=== PATIENT | female | born 1985 | race Caucasian/White ===

== ENCOUNTER 2019-05-06 01:33 | Emergency (ER) | payer BC ==
[~2019-05-06] VITALS: Ht 170.2 cm; Wt 125.0 kg
[~2019-05-06 01:33] MED LIST: ALBU17IN2 INH; ARANELLE PO; IBUP400T OR
[2019-05-06] MEDS ORDERED: TUMS500C PO (01:40)
[2019-05-06] MEDS ORDERED: NS 1,000 ML IV ONE (02:15)
[2019-05-06] MEDS ORDERED: ONDANSETRON 4MG/2ML VIAL (J2405) IV ONE (02:15)
[2019-05-06] MEDS: MORPHINE 4 MG/ML 1ML VIAL/SYRINGE (J2270) IV PRN ×2 (02:31→04:09)
[2019-05-06 02:42] LABS: BASO # 0.1 10^3/uL (0.0-0.2); BASO % 0.5 % (0.0-1.0); EOS # 0.2 10^3/uL (0.0-0.5); EOS % 1.3 % (0.0-3.0); HEMATOCRIT 38.7 % (36.0-47.0); HEMOGLOBIN 12.9 g/dl (12.0-15.5); LYMPH % 21.1 % (24.0-44.0); MEAN CORPUSCULAR HEMOGLOBIN 27.6 pg (27.0-33.0); MEAN CORPUSCULAR HGB CONC 33.3 g/dl (32.0-36.5); MEAN CORPUSCULAR VOLUME 82.7 fl (80.0-96.0); MONO # 0.8 10^3/uL (0.0-0.8); MONO % 5.9 % (0.0-5.0); NEUTROPHILS % 70.8 % (36.0-66.0); PLATELET COUNT, AUTOMATED 400 10^3/uL (150-450); RED BLOOD COUNT 4.68 10^6/uL (4.00-5.40); WHITE BLOOD COUNT 14.2 10^3/uL (4.0-10.0)
[2019-05-06 02:57] LABS: ALBUMIN 3.3 GM/DL (3.2-5.2); ALT/SGPT 16 U/L (12-78); BILIRUBIN,DIRECT < 0.1 MG/DL (0.0-0.2); BILIRUBIN,TOTAL 0.3 MG/DL (0.2-1.0); LIPASE 67 U/L (73-393); TOTAL PROTEIN 7.7 GM/DL (6.4-8.2)
--- NOTE | 2019-05-06 03:15 | REPVR ---
PROCEDURE INFORMATION: Exam: US Abdomen Limited, Right Upper Quadrant Exam date and time: 05/06/2019 2:44 AM Clinical history: 34 years old, female; Abdominal pain; Epigastric; Additional info: Ruq abd pain TECHNIQUE: Imaging protocol: Real-time ultrasound of the abdomen with image documentation. Examination was focused on the right upper quadrant. COMPARISON: No relevant prior studies available. FINDINGS: Liver: Hepatomegaly and steatosis. Gallbladder: Cholelithiasis. Common bile duct: Normal. No stones. No dilation. Pancreas: Visualized pancreas is unremarkable. IMPRESSION: Cholelithiasis without evidence of acute cholecystitis. Hepatomegaly and steatosis. Electronically signed by: Diego Rolon On 05/06/2019 03:15:03 AM
[2019-05-06] MEDS ORDERED: ONDA4TAB6 PO (04:24)
[2019-05-06] MEDS ORDERED: LEVS0.124 SL (04:24)
[2019-05-06] MEDS ORDERED: HYOSCYAMINE SULFATE 0.125 MG SUBL TABLET PO ONE (04:30)
[2019-05-06 04:41] VITALS: BP 153/90
[2019-05-06] MEDS ORDERED: KETO10TAB PO (14:53)
[2019-06-01] MEDS ORDERED: PROAAER10 INH (15:34)
[2019-06-01] MEDS ORDERED: [UNRECOGNIZED DRUG - CODE] PO (15:34)
[2019-06-01] MEDS ORDERED: IBUP-1114 PO (15:34)
== END 2019-05-06 04:43 | disposition home or self-care (01) ==
LOC: M ED 01:33
DX: K80.70 Calculus of gallbladder and bile duct without cholecystitis without obstruction (principal)
CPT/HCPCS: 76705; 80047; 80076; 81001; 83690; 84702; 85025; 93041; 96374; 96375; 96376; 99284; J2270; J2405

== ENCOUNTER 2019-05-06 12:28 | Emergency (ER) | payer BC ==
[~2019-05-06] VITALS: Ht 170.2 cm; Wt 125.0 kg
[~2019-05-06 12:28] MED LIST changes: +LEVS0.124 SL; +ONDA4TAB6 PO; +TUMS500C PO
[2019-05-06 13:44] LABS: BASO # 0.1 10^3/uL (0.0-0.2); BASO % 0.4 % (0.0-1.0); EOS # 0.1 10^3/uL (0.0-0.5); EOS % 0.8 % (0.0-3.0); HEMOGLOBIN 12.6 g/dl (12.0-15.5); LYMPH # 1.9 10^3/uL (1.5-5.0); LYMPH % 13.2 % (24.0-44.0); MEAN CORPUSCULAR HEMOGLOBIN 27.3 pg (27.0-33.0); MEAN CORPUSCULAR HGB CONC 33.2 g/dl (32.0-36.5); MEAN CORPUSCULAR VOLUME 82.3 fl (80.0-96.0); MONO # 0.8 10^3/uL (0.0-0.8); MONO % 5.7 % (0.0-5.0); NEUTROPHILS # 11.4 10^3/uL (1.5-8.5); NEUTROPHILS % 79.7 % (36.0-66.0); PLATELET COUNT, AUTOMATED 400 10^3/uL (150-450); RED BLOOD COUNT 4.62 10^6/uL (4.00-5.40); WHITE BLOOD COUNT 14.3 10^3/uL (4.0-10.0)
[2019-05-06] MEDS ORDERED: KETOROLAC 30 MG/ML VIAL (J1885) IV ONE (13:45)
[2019-05-06 14:01] LABS: ALBUMIN 3.3 GM/DL (3.2-5.2); ALT/SGPT 14 U/L (12-78); BILIRUBIN,DIRECT 0.1 MG/DL (0.0-0.2); BILIRUBIN,TOTAL 0.3 MG/DL (0.2-1.0); BLOOD UREA NITROGEN 5 MG/DL (7-18); CALCIUM LEVEL 9.2 MG/DL (8.5-10.1); CARBON DIOXIDE LEVEL 25 MEQ/L (21-32); CHLORIDE LEVEL 107 MEQ/L (98-107); CREATININE FOR GFR 0.74 MG/DL (0.55-1.30); GLOMERULAR FILTRATION RATE > 60.0 (>60); GLUCOSE, FASTING 108 MG/DL (70-100); LIPASE 122 U/L (73-393); POTASSIUM SERUM 4.1 MEQ/L (3.5-5.1); SODIUM LEVEL 140 MEQ/L (136-145); TOTAL PROTEIN 7.7 GM/DL (6.4-8.2)
[2019-05-06] MEDS ORDERED: ACETAMINOPHEN 325 MG TAB PO ONE (14:45)
[2019-05-06] MEDS ORDERED: KETO10TAB PO (14:53)
[2019-05-06 15:05] VITALS: BP 140/78
[2019-06-01] MEDS ORDERED: [UNRECOGNIZED DRUG - CODE] PO (15:34)
[2019-06-01] MEDS ORDERED: PROAAER10 INH (15:34)
[2019-06-01] MEDS ORDERED: IBUP-1114 PO (15:34)
== END 2019-05-06 15:23 | disposition home or self-care (01) ==
LOC: M ED 12:28
DX: K80.50 Calculus of bile duct without cholangitis or cholecystitis without obstruction (principal); J30.2 Other seasonal allergic rhinitis; Z87.19 Personal history of other diseases of the digestive system
CPT/HCPCS: 80048; 80076; 83690; 85025; 96374; 99284; J1885

== ENCOUNTER 2019-06-13 07:57 | Day surgery (SDC) | payer BC ==
[~2019-06-13] VITALS: Ht 167.6 cm; Wt 122.8 kg
[~2019-06-13 07:57] MED LIST changes: +IBUP-1114 PO; +KETO10TAB PO; +LIDOCAINE 1% MDV 20ML VIAL SQ PRN; +LR 1,000 ML IV ONE; +PROAAER10 INH; +[UNRECOGNIZED DRUG - CODE] PO
[2019-06-13] MEDS ORDERED: BUPIVACAINE HCL 0.25% 30 ML VIAL As Ordered ONE (09:03)
[2019-06-13] MEDS ORDERED: SUGAMMADEX SODIUM 500 MG/5 ML VIAL (BRIDION) As Ordered ONE (09:43)
[2019-06-13] MEDS ORDERED: LIDOCAINE 2% INJ 100 MG/5 ML SDV (FOR ANES.) As Ordered ONE (09:43)
[2019-06-13] MEDS ORDERED: dexameTHASONE 4 MG/ML 1ML VIAL (J1100) As Ordered ONE (09:43)
[2019-06-13] MEDS ORDERED: PROPOFOL 200 MG/20 ML VIAL As Ordered ONE (09:43)
[2019-06-13] MEDS ORDERED: fentaNYL 250 MCG/5 ML INJECTION (J3010) As Ordered ONE (09:43)
[2019-06-13] MEDS ORDERED: KETOROLAC 60 MG/2 ML VIAL (J1885) As Ordered ONE (09:43)
[2019-06-13] MEDS ORDERED: MIDAZOLAM INJ 2 MG/2 ML VIAL (J2250) As Ordered ONE (09:43)
[2019-06-13] MEDS ORDERED: ROCURONIUM BROMIDE 50 MG/5 ML VIAL As Ordered ONE ×2 (09:43→09:53)
[2019-06-13] MEDS ORDERED: METOCLOPRAMIDE INJ 10MG/2ML VIAL (J2765) As Ordered ONE (09:43)
[2019-06-13] MEDS ORDERED: ONDANSETRON 4MG/2ML VIAL (J2405) As Ordered ONE ×2 (09:43→13:26)
[2019-06-13] MEDS ORDERED: ACETAMINOPHEN 1000MG 100ML IV BTL (OFIRMEV) (J0131 PER 10MG) As Ordered ONE (09:46)
[2019-06-13] MEDS ORDERED: CONRAY-60 60% 50ML VIAL (Q9961) As Ordered ONE (10:26)
[2019-06-13] MEDS ORDERED: DESFLURANE 240 ML INHALANT As Ordered ONE (10:57)
[2019-06-13] MEDS ORDERED: fentaNYL 100 MCG/2 ML INJECTION (J3010) As Ordered ONE (11:54)
[2019-06-13] MEDS ORDERED: HYDROMORPHONE HCL 0.5 MG/ 0.5 ML SYRINGE (J1170 PER 1) IV PRN (13:30)
[2019-06-13] MEDS ORDERED: LR 1,000 ML IV SCH (13:30)
[2019-06-13] MEDS ORDERED: fentaNYL 100 MCG/2 ML INJECTION (J3010) IV PRN (13:30)
[2019-06-13] MEDS ORDERED: ONDANSETRON 4MG/2ML VIAL (J2405) IV PRN (13:30)
[2019-06-13] MEDS ORDERED: PERCOCET 5MG/325MG TAB PO PRN (13:30)
[2019-06-13] MEDS ORDERED: ALBUTEROL SULFATE 2.5 MG/0.5 ML INH NEB SOLN As Ordered ONE (14:10)
[2019-06-13] MEDS ORDERED: PERCOCET 5MG/325MG TAB As Ordered ONE (14:33)
[2019-06-13] MEDS ORDERED: NORCO, ANEXSIA 5/325MG TABLET (HYDROcodone/ACETAMINOPHEN) PO PRN (14:46)
[2019-06-13] MEDS ORDERED: IBUPROFEN 600 MG TAB PO PRN (14:46)
[2019-06-13] MEDS ORDERED: ACETAMINOPHEN 500 MG TAB PO PRN (14:46)
[2019-06-13 14:58] LABS: ALT/SGPT 38 U/L (12-78); BILIRUBIN,DIRECT < 0.1 MG/DL (0.0-0.2); BILIRUBIN,TOTAL 0.2 MG/DL (0.2-1.0); TOTAL PROTEIN 6.7 GM/DL (6.4-8.2)
[2019-06-13] MEDS ORDERED: ALBUTEROL SULFATE 2.5 MG/0.5 ML INH NEB SOLN INH ONE (15:00)
[2019-06-13 15:44] VITALS: BP 148/81
[2019-06-13 16:14] VITALS: BP 147/80
[2019-06-13 16:40] VITALS: BP 155/82
--- NOTE | 2019-06-13 18:36 | REP ---
Intraoperative cholangiogram: 13 views. History: Surgical procedure. 11 seconds of fluoroscopy time is reported. Findings: A sequence of 13 last image hold fluoroscopically obtained spot radiographs of the right upper quadrant of the abdomen during the cystic duct contrast injection demonstrates a filling defect in the common bile duct which may correspond to a balloon injection catheter. Contrast is seen flowing into the duodenum. Electronically Signed by Gómez Obrien MD 06/13/2019 06:57 P
[2019-06-13 18:43] VITALS: BP 156/86
[2019-06-13 19:40] VITALS: BP 161/81
[2019-06-13] MEDS ORDERED: ALBUTEROL SULFATE 2.5 MG/0.5 ML INH NEB SOLN NEB PRN (19:45)
[2019-06-13] MEDS ORDERED: ONDANSETRON 4 MG ORAL DISINTEGRATING TAB (Q0162 PER 1MG) PO PRN (19:45)
[2019-06-13] MEDS: PERCOCET 5MG/325MG TAB PO PRN (19:55)
[2019-06-13 20:40] VITALS: BP 154/84
[2019-06-14 02:00] VITALS: BP 148/87
[2019-06-14] MEDS: PERCOCET 5MG/325MG TAB PO PRN (05:45)
[2019-06-14 10:00] VITALS: BP 139/79
[2019-06-14 14:00] VITALS: BP 126/78
[2019-06-14] MEDS ORDERED: PERCOCET PO (14:26)
--- NOTE | 2019-06-15 08:25 | RO ---
DATE OF PROCEDURE: 06/13/2019 PREOPERATIVE DIAGNOSIS: Symptomatic gallstones. POSTOPERATIVE DIAGNOSIS: Acute and chronic cholecystitis from cholelithiasis with possible choledocholithiasis. PROCEDURE PERFORMED: Laparoscopic cholecystectomy with intraoperative cholangiogram. SURGEON: Dr. Benjie Hill [employer]: ANESTHESIA: General. INDICATIONS FOR PROCEDURE: The patient is a pleasant 34-year-old woman with a long history of episodic upper abdominal pain. She recently had a more severe episode of pain and underwent evaluation with an ultrasound that revealed multiple gallstones. She is now for a laparoscopic cholecystectomy. OPERATIVE PROCEDURE: The patient was brought to the operating room and placed on the table in a supine position. She was placed under general endotracheal anesthesia. The patient's abdomen was prepped and draped in a sterile fashion. 0.25% Marcaine was infiltrated at the trocar sites as needed. A short supraumbilical midline incision was made. A Veress needle was inserted and after positive hanging drop test the abdomen was inflated with carbon dioxide gas. The Veress needle was removed and a small incision was made down to and through the fascia along the midline and a 12 mm Bauman cannula was then placed without difficulty. The abdomen was further inflated with carbon dioxide gas. The laparoscope was inserted and a minimal area of insufflation of some gas into the omentum just below the stomach was identified. There was no evidence of bleeding. The liver appeared normal. Two 5 mm trocars were placed in the right upper quadrant and a third 5 mm trocar was placed in the left upper quadrant. The patient was tilted to a reverse Trendelenburg position and rolled slightly to the left. The gallbladder was identified at the inferior edge of the liver. She clearly had some adhesions between the gallbladder and the surrounding omentum. There appeared to be some mild edema and some erythema of the gallbladder wall. Some of the adhesions appeared to be older, though these were clearly post inflammatory. The gallbladder was tensely distended. I inserted an aspirating needle and aspirated some turbid yellow-green fluid from the gallbladder. It was clear that the gallbladder was filled with stones throughout the lumen. It was possible to grasp the gallbladder and elevate the gallbladder and liver. Additional adhesions between the gallbladder and the surrounding tissues were divided using the hook cautery. The peritoneum near the gallbladder neck was opened using the hook cautery and dissection proceeded. A small structure was identified along the lateral wall of the gallbladder near the neck which coursed posterior to the gallbladder. This appeared to be a small vessel or strand of inflammatory tissue, but as this was dissected away along the surface of the gallbladder, leakage of a small amount of bile was identified. With further dissection around the neck of the gallbladder, there was no structure that seemed to correspond to a cystic duct and I felt that it was possible that this small band-like structure on the lateral aspect of the gallbladder represented the cystic duct. I elected to proceed with an intraoperative cholangiogram. An Arrow balloon cholangiogram catheter was inserted readily and held in place with the balloon. Cholangiograms were then obtained using fluoroscopy with the injection of 30% Conray. Initial injections showed filling of the common bile duct. The balloon formed a filling defect. With additional injections and repositioning of the fluoroscopy unit, it was clear that the common hepatic duct and the hepatic radicals filled with contrast. The ductal system did appear to be somewhat dilated. On one image, there appeared to be a small filling defect down by the ampulla, but this did not appear to be persistent on the subsequent image. There was some irregular shadowing or just an irregularity in the contrast column in the area of the distal common hepatic duct and proximal common bile duct. Definite stones were not identified, but the contrast column did appear somewhat inhomogeneous in contrast suggesting possible filling defect. There was free flow of contrast through the ampulla into the duodenum without any difficulty. I elected not to consider a common bile duct exploration as her previous liver function tests had been noted to be normal. Therefore, the cholangiogram catheter was removed. The dissection of the gallbladder continued. The gallbladder wall and the surrounding tissues were quite thickened and scarred. The gallbladder was entered several times in small areas with release of two or three small gallstones in the subhepatic space. The common bile duct lay directly posterior to the gallbladder and it was necessary to conduct a very careful dissection of the gallbladder away from the common bile duct. The cholecystic artery was identified and a small branch was transected and controlled with the cautery and a second small branch was clipped and divided. Once the gallbladder had been elevated away from the common bile duct, it was easier to identify the stump of the cystic duct and this was controlled by placement of a #0 Vicryl Endoloop as it did not appear amendable to placement of a clip. There was no further leakage of any bile identified. The dissection of the gallbladder was completed and this was placed in an Endopouch. The right upper quadrant was copiously irrigated and inspected for hemostasis which was excellent. There was no sign of any further leakage of bile. Once the cystic duct was controlled, I elected to place a Harjinder drain in the subhepatic space. This was inserted through the Bauman cannula and directed out through the lateral right upper quadrant trocar site. The patient was returned to a flat position. The abdomen was deflated and the trocars were removed. The gallbladder was recovered through the supraumbilical site. The mass of stones within the gallbladder required extension of the skin and fascial incision along the midline to deliver the gallbladder. I would note that the several spilled gallstones in the right upper quadrant had been removed using a stone grasping forceps prior to deflation of the abdomen. The fascia along the midline was closed with interrupted simple sutures of #0 Vicryl. The skin incisions were all closed with buried #4-0 Vicryl and Steri-Strips. The drain was sutured to the skin with #2-0 silk and a chlorhexidine gluconate OpSite dressing was applied and the drain connected to a Jorge-Thompson bulb. Light dressings were applied. The patient tolerated the procedure well without apparent complication. She was awakened in the operating room, extubated and moved to the recovery room in stable condition.
== END 2019-06-14 16:35 | disposition home or self-care (01) ==
LOC: M SDC 07:57 → M MS5PR 15:30 → M SDC 06-14 16:35
PROVIDERS: ATTEND Surgery
DX: K80.10 Calculus of gallbladder with chronic cholecystitis without obstruction (principal); J45.909 Unspecified asthma, uncomplicated; K21.9 Gastro-esophageal reflux disease without esophagitis; G93.2 Benign intracranial hypertension; R06.83 Snoring; E66.01 Morbid (severe) obesity due to excess calories; Z68.41 Body mass index [BMI] 40.0-44.9, adult; Z79.899 Other long term (current) drug therapy
CPT/HCPCS: 36415; 47563; 80076; 81025; 88304; J0131; J1100; J1885; J2250; J2405; J2765; J3010; Q9961

== ENCOUNTER → 2019-06-23 | Outpatient (CLI) | payer BC ==
[~2019-06-23] MED LIST changes: -LIDOCAINE 1% MDV 20ML VIAL SQ PRN; -LR 1,000 ML IV ONE; +PERCOCET PO
[2019-06-23 08:17] LABS: ALT/SGPT 26 U/L (12-78); BILIRUBIN,DIRECT < 0.1 MG/DL (0.0-0.2); BILIRUBIN,TOTAL 0.2 MG/DL (0.2-1.0); TOTAL PROTEIN 7.2 GM/DL (6.4-8.2)
== END ==
LOC: M LAB 07:22
PROVIDERS: ATTEND Surgery
DX: K80.20 Calculus of gallbladder without cholecystitis without obstruction (principal)

== ENCOUNTER → 2019-10-05 | Outpatient (CLI) | payer BC ==
--- NOTE | 2019-10-05 09:45 | REP ---
RIGHT UPPER QUADRANT ULTRASOUND: Real-time sonographic evaluation of the right upper quadrant performed. The patient has had a prior cholecystectomy in June 2019. The common bile duct is mildly dilated, 9 mm in maximum diameter. In the proximal common bile duct there is an echogenic focus consistent with a stone within the common bile duct, 11 mm in diameter. Liver demonstrates a hyperechoic nodule in the right lobe measuring 1.9 x 1.7 x 1.4 cm. This most likely represents a hemangioma. Pancreas is not well visualized due to overlying bowel gas. No gross pancreatic abnormality is seen. Right kidney demonstrates no hydronephrosis, normal size to 1.4 cm in length. No ascites is seen. IMPRESSION: Status post cholecystectomy. Dilated common bile duct up to 9 mm. In the proximal common bile duct, there appears to be an 11 mm calculus. Hyperechoic nodule right lower lobe of the liver 1.9 cm in diameter probably represents a hemangioma. Electronically Signed by Shubham Farrell MD 10/05/2019 07:41 P
== END ==
LOC: M RAD 07:28
PROVIDERS: ATTEND Nurse Practitioner
DX: R10.11 Right upper quadrant pain (principal); R11.2 Nausea with vomiting, unspecified; R19.7 Diarrhea, unspecified; K76.89 Other specified diseases of liver; Z90.49 Acquired absence of other specified parts of digestive tract

== ENCOUNTER → 2019-10-09 | Outpatient (CLI) | payer BC ==
[2019-10-09 09:05] LABS: ALBUMIN 3.3 GM/DL (3.2-5.2); ALT/SGPT 21 U/L (12-78); BILIRUBIN,DIRECT < 0.1 MG/DL (0.0-0.2); BILIRUBIN,TOTAL 0.4 MG/DL (0.2-1.0); TOTAL PROTEIN 7.3 GM/DL (6.4-8.2)
== END ==
LOC: M LAB 08:10
PROVIDERS: ATTEND Nurse Practitioner
DX: K80.13 Calculus of gallbladder with acute and chronic cholecystitis with obstruction (principal)

== ENCOUNTER 2019-10-24 09:00 | Day surgery (SDC) | payer BC ==
[~2019-10-24] VITALS: Ht 167.6 cm; Wt 123.4 kg
[~2019-10-24 09:00] MED LIST changes: +LIDOCAINE 1% MDV 20ML VIAL SQ PRN; +LIDOCAINE 2% INJ 100 MG/5 ML SDV (FOR ANES.) As Ordered ONE; +LR 1,000 ML IV ONE; +MIDAZOLAM INJ 2 MG/2 ML VIAL (J2250) As Ordered ONE; +ONDANSETRON 4MG/2ML VIAL (J2405) As Ordered ONE; +ROCURONIUM BROMIDE 50 MG/5 ML VIAL As Ordered ONE; +SUGAMMADEX SODIUM 500 MG/5 ML VIAL (BRIDION) As Ordered ONE; +dexameTHASONE 4 MG/ML 1ML VIAL (J1100) As Ordered ONE; +fentaNYL 100 MCG/2 ML INJECTION (J3010) As Ordered ONE; +propofoL 200 MG/20 ML VIAL As Ordered ONE
[2019-10-24] MEDS ORDERED: SCOPOLAMINE 1MG TRANSDERMAL PATCH TOP ONE (10:00)
[2019-10-24] MEDS ORDERED: ISOVUE-300 61% 50ML VIAL (Q9967) As Ordered ONE (10:12)
--- NOTE | 2019-10-24 13:54 | ROOR ---
Patient Name: Luisa Brandt Procedure Date: 10/24/2019 12:19 PM Date of : 1985 Age: 34 Room: [facility] Gender: Female Note Status: Finalized Procedure: ERCP Indications: Bile duct stone(s) Providers: Palmer Zaragoza MD Referring MD: Kaylee Laboy NP Requesting Provider: Medicines: Monitored Anesthesia Care Complications: No immediate complications. Procedure: Pre-Anesthesia Assessment: - Prior to the procedure, a History and Physical was performed, and patient medications and allergies were reviewed. The patient is competent. The risks and benefits of the procedure and the sedation options and risks were discussed with the patient. All questions were answered and informed consent was obtained. Patient identification and proposed procedure were verified by the physician, the nurse and the anesthesiologist in the procedure room. Mental Status Examination: alert and oriented. Airway Examination: normal oropharyngeal airway and neck mobility. Respiratory Examination: clear to auscultation. CV Examination: normal. Prophylactic Antibiotics: The patient does not require prophylactic antibiotics. Prior Anticoagulants: The patient has taken no previous anticoagulant or antiplatelet agents. ASA Grade Assessment: III - A patient with severe systemic disease. After reviewing the risks and benefits, the patient was deemed in satisfactory condition to undergo the procedure. The anesthesia plan was to use general anesthesia. Immediately prior to administration of medications, the patient was re-assessed for adequacy to receive sedatives. The heart rate, respiratory rate, oxygen saturations, blood pressure, adequacy of pulmonary ventilation, and response to care were monitored throughout the procedure. The physical status of the patient was re-assessed after the procedure. The Duodenoscope was introduced through the mouth, and advanced to the duodenum and used to inject contrast into the bile duct. The ERCP was accomplished without difficulty. The patient tolerated the procedure well. Findings: The celebrity chef entrepreneur media personality film was normal. The esophagus was successfully intubated under direct vision. The scope was advanced from the mouth to the duodenum. The pharynx, larynx and associated structures, as well as the upper GI tract, were normal. The major papilla was small. The major papilla was flat. A 0.035 inch x 260 cm straight Hydra Jagwire was passed into the biliary tree. The short-nosed traction sphincterotome was passed over the guidewire and the bile duct was then deeply cannulated. Contrast was injected. The main bile duct contained filling defect(s). The main bile duct was diffusely dilated, with an obstruction. The largest diameter was 12 mm. Biliary sphincterotomy was made with a monofilament traction (standard) sphincterotome using ERBE electrocautery. There was no post-sphincterotomy bleeding. To discover objects, the biliary tree was swept with a 9 mm balloon starting at the bifurcation. Many stones were removed. One stone remained. Lithotripsy with the mechanical lithotripter was unsuccessful because the stone could not be trapped. One 10 Fr by 7 cm plastic stent with a single external flap and a single internal flap was placed into the common bile duct. Bile flowed through the stent. The stent was in good position. Occlusion cholangiogram at the end of the procedure did not show any residual filling defects. Pancreatic duct was neither cannulated nor opacified. Impression: - The major papilla appeared to be small and flat. - A filling defect was seen on the cholangiogram. - The entire main bile duct was dilated, with an obstruction. - Choledocholithiasis was found. Partial removal was accomplished with biliary sphincterotomy, balloon sweep and lithotripsy; a stent was inserted. - A biliary sphincterotomy was performed. - The biliary tree was swept. - Lithotripsy was unsuccessful because the stone could not be trapped. - One plastic stent was placed into the common bile duct. Recommendation: - Avoid aspirin and nonsteroidal anti-inflammatory medicines. - The patient will be observed post-procedure, until all discharge criteria are met. - Patient has a contact number available for emergencies. The signs and symptoms of potential delayed complications were discussed with the patient. Return to normal activities tomorrow. Written discharge instructions were provided to the patient. - Clear liquid diet today, then advance as tolerated to low fat diet. - Repeat ERCP in 3 months to remove stent and remaining stones.. - Telephone GI clinic if symptomatic today. - Return to GI clinic in 3 months. - Return to primary care physician. Palmer Zaragoza MD Palmer Zaragoza MD 10/24/2019 1:54:25 PM Electronically signed by Palmer Zaragoza MD Number of Addenda: 0 Note Initiated On: 10/24/2019 12:19 PM Estimated Blood Loss: Estimated blood loss was minimal.
[2019-10-24] MEDS ORDERED: ONDANSETRON 4MG/2ML VIAL (J2405) IV PRN (14:00)
[2019-10-24] MEDS ORDERED: PERCOCET 5MG/325MG TAB PO PRN (14:00)
[2019-10-24] MEDS ORDERED: METOCLOPRAMIDE INJ 10MG/2ML VIAL (J2765) IV PRN (14:00)
[2019-10-24] MEDS ORDERED: MEPERIDINE INJ 25 MG/ML VIAL (J2175) IV PRN (14:00)
[2019-10-24] MEDS ORDERED: fentaNYL 100 MCG/2 ML INJECTION (J3010) IV PRN (14:00)
[2019-10-24] MEDS ORDERED: LR 1,000 ML IV SCH (14:00)
--- NOTE | 2019-10-24 14:02 | REP ---
Clinical: Choledocholithiasis. Technique: Intraoperative fluoroscopic imaging using portable C-arm technique. Findings: Multiple images from ERCP examination demonstrate common bile duct dilatation with subsequent placement of a common bile duct stent. Total fluoroscopic time 1 minute 11 seconds. Impression: Common bile duct stent placement. Electronically Signed by Satish Escamilla MD 10/24/2019 01:53 P
== END 2019-10-24 15:30 | disposition home or self-care (01) ==
LOC: M SDC 09:00
PROVIDERS: ATTEND Internal Medicine Gastroenterology
DX: K83.1 Obstruction of bile duct (principal); K80.50 Calculus of bile duct without cholangitis or cholecystitis without obstruction; K83.8 Other specified diseases of biliary tract; R93.2 Abnormal findings on diagnostic imaging of liver and biliary tract; K21.9 Gastro-esophageal reflux disease without esophagitis; J45.909 Unspecified asthma, uncomplicated; Z79.899 Other long term (current) drug therapy
CPT/HCPCS: 43264; 43274; 74330; 81025; C1876; J1100; J2250; J2405; J3010; Q9967

== ENCOUNTER → 2020-02-15 | Outpatient (CLI) | payer BC ==
[~2020-02-15] MED LIST changes: -LIDOCAINE 1% MDV 20ML VIAL SQ PRN; -LIDOCAINE 2% INJ 100 MG/5 ML SDV (FOR ANES.) As Ordered ONE; -LR 1,000 ML IV ONE; -MIDAZOLAM INJ 2 MG/2 ML VIAL (J2250) As Ordered ONE; -ONDANSETRON 4MG/2ML VIAL (J2405) As Ordered ONE; -ROCURONIUM BROMIDE 50 MG/5 ML VIAL As Ordered ONE; -SUGAMMADEX SODIUM 500 MG/5 ML VIAL (BRIDION) As Ordered ONE; -dexameTHASONE 4 MG/ML 1ML VIAL (J1100) As Ordered ONE; -fentaNYL 100 MCG/2 ML INJECTION (J3010) As Ordered ONE; -propofoL 200 MG/20 ML VIAL As Ordered ONE
== END ==
LOC: M LABSMTC 10:25
PROVIDERS: ATTEND Anesthesiology
DX: Z01.818 Encounter for other preprocedural examination (principal); Z11.59 Encounter for screening for other viral diseases
CPT/HCPCS: C9803; U0003

== ENCOUNTER 2020-02-20 06:13 | Day surgery (SDC) | payer BC ==
[~2020-02-20] VITALS: Ht 167.6 cm; Wt 130.5 kg
[~2020-02-20 06:13] MED LIST changes: +LIDOCAINE 1% MDV 20ML VIAL SQ PRN
[2020-02-20] MEDS ORDERED: NS 1,000 ML IV ONE (07:00)
[2020-02-20] MEDS ORDERED: LR 1,000 ML IV ONE ×2 (07:00→09:15)
[2020-02-20] MEDS ORDERED: ISOVUE-300 61% 50ML VIAL As Ordered ONE (07:10)
[2020-02-20] MEDS ORDERED: MIDAZOLAM INJ 2MG/2ML VIAL (J2250 PER 1MG) As Ordered ONE (07:50)
[2020-02-20] MEDS ORDERED: propofoL 200 MG/20 ML VIAL As Ordered ONE (07:50)
[2020-02-20] MEDS ORDERED: ROCURONIUM BROMIDE 50 MG/5 ML VIAL As Ordered ONE (07:50)
[2020-02-20] MEDS ORDERED: LIDOCAINE 2% 100MG/5ML SDV (FOR ANES.) As Ordered ONE (07:50)
[2020-02-20] MEDS ORDERED: dexameTHASONE 4 MG/ML 1ML VIAL (J1100 PER 1MG) As Ordered ONE (07:50)
[2020-02-20] MEDS ORDERED: fentaNYL 100 MCG/2 ML INJECTION (J3010) As Ordered ONE (07:50)
[2020-02-20] MEDS ORDERED: ONDANSETRON 4MG/2ML VIAL As Ordered ONE (07:51)
[2020-02-20] MEDS ORDERED: SUGAMMADEX SODIUM 500 MG/5 ML VIAL (BRIDION) As Ordered ONE (07:55)
--- NOTE | 2020-02-20 08:24 | ROOR ---
Patient Name: Luisa Brandt Procedure Date: 02/20/2020 7:01 AM Date of : 1985 Age: 34 Room: [facility] Gender: Female Note Status: Finalized Procedure: ERCP Indications: Bile duct stone(s) Providers: Palmer Zaragoza MD Referring MD: Kaylee Laboy NP Requesting Provider: Medicines: Monitored Anesthesia Care Complications: No immediate complications. Procedure: Pre-Anesthesia Assessment: - Prior to the procedure, a History and Physical was performed, and patient medications and allergies were reviewed. The patient is competent. The risks and benefits of the procedure and the sedation options and risks were discussed with the patient. All questions were answered and informed consent was obtained. Patient identification and proposed procedure were verified by the physician, the nurse and the anesthesiologist in the procedure room. Mental Status Examination: alert and oriented. Airway Examination: normal oropharyngeal airway and neck mobility. Respiratory Examination: clear to auscultation. CV Examination: normal. Prophylactic Antibiotics: The patient does not require prophylactic antibiotics. Prior Anticoagulants: The patient has taken no previous anticoagulant or antiplatelet agents. ASA Grade Assessment: III - A patient with severe systemic disease. After reviewing the risks and benefits, the patient was deemed in satisfactory condition to undergo the procedure. The anesthesia plan was to use general anesthesia. Immediately prior to administration of medications, the patient was re-assessed for adequacy to receive sedatives. The heart rate, respiratory rate, oxygen saturations, blood pressure, adequacy of pulmonary ventilation, and response to care were monitored throughout the procedure. The physical status of the patient was re-assessed after the procedure. The Duodenoscope was introduced through the mouth, and advanced to the duodenum and used to inject contrast into the bile duct. The ERCP was accomplished without difficulty. The patient tolerated the procedure well. Findings: A biliary stent was visible on the hockey scout film. The esophagus was successfully intubated under direct vision without detailed examination of the pharynx, larynx, and associated structures, and upper GI tract. The upper GI tract was grossly normal. One plastic stent originating in the biliary tree was emerging from the major papilla. A biliary sphincterotomy had been performed. The sphincterotomy appeared open. The major papilla was small. One stent was removed from the biliary tree using a snare. A 0.035 inch x 260 cm straight Hydra Jagwire was passed into the biliary tree. The short-nosed traction sphincterotome was passed over the guidewire and the bile duct was then deeply cannulated. Contrast was injected. I personally interpreted the bile duct images. Ductal flow of contrast was adequate. Image quality was adequate. Contrast extended to the entire biliary tree. The main bile duct was moderately dilated and diffusely dilated. The largest diameter was 10 mm. A cholecystectomy had been performed. The middle third of the main bile duct contained filling defect(s) thought to be a stone. A 1 mm biliary sphincterotomy was made with a monofilament traction (standard) sphincterotome using ERBE electrocautery. There was no post-sphincterotomy bleeding. The biliary tree was swept with a 10 mm balloon starting at the bifurcation. Three stones were removed. No stones remained. Occlusion cholangiogram at the end of the procedure did not show any residual filling defects. Pancreatic duct was neither cannulated nor opacified. Impression: - One stent from the biliary tree was seen in the major papilla. - Prior biliary sphincterotomy appeared open. - The major papilla appeared to be small. - A filling defect consistent with a stone was seen on the cholangiogram. - The entire main bile duct was moderately dilated. - The patient has had a cholecystectomy. - Choledocholithiasis was found. Complete removal was accomplished by biliary sphincterotomy and balloon extraction. - One stent was removed from the biliary tree. - A biliary sphincterotomy was performed. - The biliary tree was swept. Recommendation: - Avoid aspirin and nonsteroidal anti-inflammatory medicines. - The patient will be observed post-procedure, until all discharge criteria are met. - Patient has a contact number available for emergencies. The signs and symptoms of potential delayed complications were discussed with the patient. Return to normal activities tomorrow. Written discharge instructions were provided to the patient. - Clear liquid diet today, then advance as tolerated to high fiber diet and low fat diet. - Telephone GI clinic if symptomatic, call GI clinic # [phone]. - Return to primary care physician. Palmer Zaragoza MD Palmer Zaragoza MD 02/20/2020 8:24:36 AM Electronically signed by Palmer Zaragoza MD Number of Addenda: 0 Note Initiated On: 02/20/2020 7:01 AM Estimated Blood Loss: Estimated blood loss: none.
[2020-02-20] MEDS ORDERED: LR 1,000 ML IV SCH (08:30)
[2020-02-20] MEDS ORDERED: fentaNYL 100 MCG/2 ML INJECTION (J3010) IV PRN (08:30)
[2020-02-20] MEDS ORDERED: ONDANSETRON 4MG/2ML VIAL IV PRN (08:30)
[2020-02-20] MEDS ORDERED: oxyCODONE 5MG TAB PO PRN (08:30)
--- NOTE | 2020-02-20 08:49 | REP ---
ERCP: 51 images. HISTORY: ERCP. Common bile duct stone. 31 seconds of fluoroscopy time was utilized. FINDINGS: A sequence of 51 last image hold fluoroscopically obtained spot radiographs the right upper quadrant document endoscopic cannulation, contrast injection, and balloon catheter manipulation of the common bile duct. Electronically Signed by Gómez Obrien MD 02/20/2020 01:09 P
[2020-02-20 10:23] VITALS: BP 142/79
== END 2020-02-20 11:00 | disposition home or self-care (01) ==
LOC: M SDC 06:13
PROVIDERS: ATTEND Internal Medicine Gastroenterology
DX: K80.50 Calculus of bile duct without cholangitis or cholecystitis without obstruction (principal); Z96.89 Presence of other specified functional implants; J45.909 Unspecified asthma, uncomplicated; Z79.51 Long term (current) use of inhaled steroids; Z79.899 Other long term (current) drug therapy
CPT/HCPCS: 43274; 74330; 81025; J1100; J2250; J2405; J3010; Q9967

== ENCOUNTER 2020-02-21 21:51 | Emergency (ER) | payer BC ==
[~2020-02-21] VITALS: Ht 167.6 cm; Wt 125.0 kg
[~2020-02-21 21:51] MED LIST changes: -LIDOCAINE 1% MDV 20ML VIAL SQ PRN
[2020-02-21] MEDS ORDERED: NS 1,000 ML IV ONE (23:15)
[2020-02-22 00:49] LABS: BASO % 0.5 % (0.0-1.0); EOS % 0.1 % (0.0-3.0); HEMATOCRIT 40.2 % (36.0-47.0); LYMPH # 1.4 10^3/uL (1.5-5.0); MEAN CORPUSCULAR HEMOGLOBIN 26.5 pg (27.0-33.0); MEAN CORPUSCULAR HGB CONC 32.3 g/dl (32.0-36.5); MEAN CORPUSCULAR VOLUME 81.9 fl (80.0-96.0); MONO # 0.5 10^3/uL (0.0-0.8); MONO % 6.1 % (0.0-5.0); NEUTROPHILS # 6.3 10^3/uL (1.5-8.5); NEUTROPHILS % 75.7 % (36.0-66.0); PLATELET COUNT, AUTOMATED 292 10^3/uL (150-450); RED BLOOD COUNT 4.91 10^6/uL (4.00-5.40); WHITE BLOOD COUNT 8.3 10^3/uL (4.0-10.0)
[2020-02-22 01:58] LABS: ALBUMIN 3.1 GM/DL (3.2-5.2); ALT/SGPT 28 U/L (12-78); BILIRUBIN,DIRECT < 0.1 MG/DL (0.0-0.2); BILIRUBIN,TOTAL 0.3 MG/DL (0.2-1.0); BLOOD UREA NITROGEN 8 MG/DL (7-18); CALCIUM LEVEL 8.5 MG/DL (8.5-10.1); CARBON DIOXIDE LEVEL 26 MEQ/L (21-32); CHLORIDE LEVEL 104 MEQ/L (98-107); CREATININE FOR GFR 0.67 MG/DL (0.55-1.30); GLOMERULAR FILTRATION RATE > 60.0 (>60); GLUCOSE, FASTING 100 MG/DL (70-100); LIPASE 97 U/L (73-393); POTASSIUM SERUM 3.5 MEQ/L (3.5-5.1); SODIUM LEVEL 135 MEQ/L (136-145); TOTAL PROTEIN 7.3 GM/DL (6.4-8.2)
[2020-02-22] MEDS ORDERED: KETOROLAC 30 MG/ML 1ML VIAL As Ordered ONE (02:40)
[2020-02-22] MEDS ORDERED: KETOROLAC 30 MG/ML 1ML VIAL IV ONE (02:45)
[2020-02-22 04:11] VITALS: BP 137/82
== END 2020-02-22 04:13 | disposition home or self-care (01) ==
LOC: M ED 21:51
DX: R50.9 Fever, unspecified (principal); J45.909 Unspecified asthma, uncomplicated; E66.9 Obesity, unspecified; Z79.3 Long term (current) use of hormonal contraceptives
CPT/HCPCS: 80048; 80076; 83605; 83690; 85025; 87040; 96361; 96374; 99284; J1885

== ENCOUNTER → 2024-06-18 | Outpatient (CLI) | payer BC ==
[~2024-06-18] MED LIST changes: +ONDA-282 PO; -ONDA4TAB6 PO
== END ==
LOC: M RAD 09:23
PROVIDERS: ATTEND Registered Nurse
DX: J06.9 Acute upper respiratory infection, unspecified (principal)